=== PATIENT | female | born 1990 | race Caucasian/White ===

== ENCOUNTER → 2020-07-05 | Outpatient (CLI) | payer BC, OTHER ==
[~2020-07-05] MED LIST: AIMOVIG AU70 MG/1 ML SQ; ANTIVERT 25MG T25 MG PO; ASPIRIN CHEWABL81 MG PO; BUSPIRONE HCL15 MG PO; CYCLOBENZAPRINE5 MG PO; DEPO INJECTION INJ; HYDROCHLOROTH12.5 MG PO; HYDROXYZINE HCL50 MG PO; IBU800 MG PO; K-DUR TAB 10 M10 MEQ PO; LEXAPRO10 MG PO; LEXAPRO20 MG PO; LOPRESSOR 25 MG25 MG PO; NAPROSYN500 MG PO; NORCO 5-325 TA1 EACH PO; NURTEC ODT75 MG PO; PRAZOSIN HCL2 MG PO; VITAMIN D PO; VITAMIN D250000 UNIT PO; WELLBUTRIN XL300 M1 PO
[2020-07-05 10:54] LABS: HEMOGLOBIN 13.9 gm/dl (12.3-15.3); RED BLOOD COUNT 4.43 M/UL (4.00-5.10); WHITE BLOOD COUNT 5.3 K/UL (4.5-11.0)
[2020-07-05 11:03] LABS: BUN/CREATININE RATIO 12 (0-10)
== END ==
LOC: OPSV2 09:30
PROVIDERS: Anesthesiology; Obstetrics & Gynecology
DX: Z01.818 Encounter for other preprocedural examination (principal); N39.46 Mixed incontinence
CPT/HCPCS: 36415; 80048; 81001; 85025; 93005

== ENCOUNTER 2020-07-06 11:13 | Day surgery (SDC) | payer BC, OTHER ==
[~2020-07-06] VITALS: Ht 160 cm; Wt 99.8 kg
[~2020-07-06 11:13] MED LIST changes: -ASPIRIN CHEWABL81 MG PO; -NAPROSYN500 MG PO; -NORCO 5-325 TA1 EACH PO
[2020-07-07 06:28] LABS: HEMOGLOBIN 12.7 gm/dl (12.3-15.3)
[2020-07-07] MEDS ORDERED: NORCO 5-325 TA1 EACH PO (08:29)
--- NOTE | 2020-07-07 08:45 | NUR ---
PVR COMPLETED PER DR. LACKEY ORDERED. AMBULATED PATIENT WITHOUT ANY DIFFICULTY. NO DIZZINESS, UNSTEADINESS, OR SOA NOTED. PATIENT VOIVED 400 ML, UPON STRAIGHT CATH WITH 16 FR AVERY, LESS THAN 5 ML OF CLEAR, YELLOW URINE WAS NOTED.
[2020-07-07] MEDS ORDERED: NAPROSYN500 MG PO (10:40)
== END 2020-07-07 11:48 | disposition home or self-care (01) ==
LOC: OR 11:13 → M/S 17:48 → OR 17:48 → M/S 07-07 11:48
PROVIDERS: Obstetrics & Gynecology
DX: N39.46 Mixed incontinence (principal); R35.0 Frequency of micturition; I51.9 Heart disease, unspecified; M17.0 Bilateral primary osteoarthritis of knee; E55.9 Vitamin D deficiency, unspecified; G43.919 Migraine, unspecified, intractable, without status migrainosus; E66.9 Obesity, unspecified; F41.0 Panic disorder [episodic paroxysmal anxiety]; F41.1 Generalized anxiety disorder; F33.1 Major depressive disorder, recurrent, moderate; F43.10 Post-traumatic stress disorder, unspecified; K52.9 Noninfective gastroenteritis and colitis, unspecified; Z79.899 Other long term (current) drug therapy; Z88.0 Allergy status to penicillin; Z68.39 Body mass index [BMI] 39.0-39.9, adult; Z87.440 Personal history of urinary (tract) infections; Z87.42 Personal history of other diseases of the female genital tract
CPT/HCPCS: 36415; 82962; 85014; 85018; C1769; C1771; G0378; J1580; J2001; J2250; J2405; J2704; J2795; J3010; J7120; Q0177

== ENCOUNTER 2020-09-13 16:35 | Emergency (ER) | payer BC, OTHER ==
[~2020-09-13 16:35] MED LIST changes: +NAPROSYN500 MG PO; +NORCO 5-325 TA1 EACH PO
[2020-09-13 17:38] LABS: HEMOGLOBIN 14.1 gm/dl (12.3-15.3); RED BLOOD COUNT 4.49 M/UL (4.00-5.10)
[2020-09-13 18:00] LABS: BUN/CREATININE RATIO 13 (0-10)
[2020-09-13] MEDS ORDERED: ASPIRIN CHEWABL81 MG PO (18:29)
== END 2020-09-13 18:48 | disposition home or self-care (01) ==
LOC: ER1 16:35
PROVIDERS: Emergency Medicine
DX: M79.662 Pain in left lower leg (principal); E87.6 Hypokalemia
CPT/HCPCS: 80053; 85025; 85610; 85730; 93971; 99283

== ENCOUNTER 2021-08-18 15:38 | Emergency (ER) | payer OTHER ==
[~2021-08-18 15:38] MED LIST changes: +ASPIRIN CHEWABL81 MG PO
[2021-08-18 16:19] LABS: HEMOGLOBIN 14.4 gm/dl (12.3-15.3); RED BLOOD COUNT 4.58 M/UL (4.00-5.10); WHITE BLOOD COUNT 6.9 K/UL (4.5-11.0)
[2021-08-18 17:13] LABS: BUN/CREATININE RATIO 11 (0-10)
[2021-08-18] MEDS ORDERED: PROTONIX 40 MG40 M1 PO (20:52)
[2021-08-18] MEDS ORDERED: CEPHALEXIN500 M1 PO (20:52)
[2021-08-18] MEDS ORDERED: ONDANSETRON ODT4 MG SL (20:52)
[2021-08-18] MEDS ORDERED: TORADOL 10 MG T10 MG PO (20:52)
== END 2021-08-18 21:09 | disposition home or self-care (01) ==
LOC: ER1 15:38
PROVIDERS: Emergency Medicine
DX: N30.01 Acute cystitis with hematuria (principal); Z88.0 Allergy status to penicillin
CPT/HCPCS: 80053; 81001; 83690; 84703; 85025; 87086; 96374; 96375; 99284; C9113; J1885; J2405; Q9967

== ENCOUNTER → 2022-01-23 | Outpatient (CLI) | payer OTHER ==
[~2022-01-23] MED LIST changes: +CEPHALEXIN500 M1 PO; +ONDANSETRON ODT4 MG SL; +PROTONIX 40 MG40 M1 PO; +TORADOL 10 MG T10 MG PO
== END ==
LOC: HEART 5 09:30
DX: Z01.810 Encounter for preprocedural cardiovascular examination (principal); R00.2 Palpitations; I07.1 Rheumatic tricuspid insufficiency
CPT/HCPCS: 93306